=== PATIENT | female | born 1955 | race Caucasian/White ===

== ENCOUNTER 2022-05-13 15:22 | Emergency (ER) | payer MEDICARE, SELFPAY ==
[2022-05-13 15:35] VITALS: BP 142/81; PULSE 102; RESP 16; TEMP 36.9; O2SAT 98
--- NOTE | 2022-05-13 16:08 | ED.GENADULT ---
HPI - General Adult General Chief complaint: Unspecified Stated complaint: not feeling well Time Seen by Provider: 05/13/22 16:00 Source: patient, RN notes reviewed and old records reviewed Mode of arrival: ambulatory Limitations: no limitations History of Present Illness HPI narrative: 66 year old female who presents to [facility] care with complaints of not feeling well for the past 2 days. Patient reports that she has felt tired for 2 days, denies any cough or sore throat reports that she is under a lot of stress. Patient reports that her brother is under hospice care and she is caring for her mother and feels anxious and overwhelmed. Patient reports that she has appointment with her PCP in 2 weeks, reports that she didn't call his office to see if she could get in sooner.Patient requesting medication for her nerves, states has taken Xanax in past, not receptive to antidepressant. MD complaint: anxiety Onset (ago): day(s) (2) Related Data Home Medications Medication Instructions Recorded Confirmed alendronate 70 mg tablet mg PO 05/13/22 ergocalciferol (vitamin D2) 1,250 05/13/22 mcg (50,000 unit) capsule hydrochlorothiazide 12.5 mg tablet mg 05/13/22 lisinopril 40 mg tablet mg 05/13/22 Allergies Allergy/AdvReac Type Severity Reaction Status Date / Time Sulfa (Sulfonamide Allergy Intermediate Hives / Verified 12/03/18 15:56 Antibiotics) Red Face Review of Systems Review of Systems: CONSTITUTIONAL: Denies fever, chills, or sweats. EYES: Denies visual changes, redness, or discharge. ENT: Denies rhinorrhea, congestion, sore throat, or otalgia. CARDIOVASCULAR: Denies chest pain, palpitations, or edema. RESPIRATORY: Denies cough or dyspnea. GASTROINTESTINAL: Denies abdominal pain, nausea, vomiting, or diarrhea. GENITOURINARY: Denies dysuria or hematuria. SKIN: Denies rash or itching. MUSCULOSKELETAL: Denies back pain, joint pain, or myalgia.fatigue reported NEUROLOGIC: Denies headache, numbness, or weakness. PSYCHIATRIC: Reports anxiety or depression.feels overwhelmed with family stress All systems reviewed & are unremarkable except as noted in HPI and below PMFSH Past Medical History Medical History (Updated 05/15/22 @ 08:22 by Billie Mcintosh NP) Anxiety Arthritis Diverticulosis GERD (gastroesophageal reflux disease) Hypertension Surgical History Surgical History (Updated 05/15/22 @ 08:10 by Billie Mcintosh NP) History of appendectomy History of removal of skin mole Social History Social History (Updated 05/15/22 @ 08:09 by Billie Mcintosh NP) Living arrangements: with family Gender identity (if verbalized by the patient): Female Comments At time of signature, agree with nursing past medical, surgical, social and family history. There is no relevant family history pertinent to the presenting complaint Exam Narrative: GENERAL: Well-appearing, well-nourished, and in no acute distress. HEAD: Normocephalic, atraumatic. EYES: PERRLA and EOMI. ENT: Nares clear, no rhinorrhea or epistaxis. Mucous membranes moist.TM's normal with good light reflex, throat pink with no swelling NECK: Supple. no lymphadenopathy CHEST: Clear to auscultation. No respiratory distress. SAO2 98% on room air HEART: Regular rate and rhythm. No murmur heard. Normal peripheral pulses. ABDOMEN: Soft, nontender, nondistended, normal active bowel sounds. EXTREMITIES: Normal range of motion. No edema. SKIN: Warm, dry, no rash. NEURO: No focal deficits. Alert and oriented x3,anxious Course Course Emergency Course: Patient is aware of diagnosis, understands and agrees to treatment plan.? Anticipatory guidance given.? Patient agrees to follow-up as directed and is aware of reasons to seek care at the emergency department. Portions of this record may have been created with voice recognition software Level of Care: Express Care Visit Vital Signs Vital signs: Vital Signs Temperature 36.9 C 05/13/22 15:35 Pulse
== END 2022-05-13 16:36 | disposition home or self-care (01) ==
PROVIDERS: Emergency Provider Registered Nurse; PCP Internal Medicine
DX: F41.9 Anxiety disorder, unspecified (principal); M19.90 Unspecified osteoarthritis, unspecified site; K21.9 Gastro-esophageal reflux disease without esophagitis; I10 Essential (primary) hypertension
CPT/HCPCS: 99213; G0463

== ENCOUNTER 2024-08-22 13:57 | Outpatient (CLI) | payer MEDICARE, SELFPAY ==
--- OUTSIDE RECORDS SUMMARY | 2024-08-22 14:11 | XMS_ITS | Clinical Summary ---
Author Organization [facility] [address] Address [address] [place] [address] Care Team Providers Care Computer Information Systems Professor Name Role Phone Zaire Nguyen MD Primary Care Provider + Allergies Active Allergy Reactions Criticality Noted Date Comments Sulfa (Sulfonamide Antibiotics) Rash Medium Sulfasalazine Rash Medium 02/21/2015 With fever Medications ergocalciferol (VITAMIN D) 50,000 unit capsule 5 Active calcium carbonate (TUMS) 500 mg calcium (200 mg of elemental calcium) chewable tablet Take 2 tablet/chew tab (1,000 mg total) by mouth daily as needed for indigestion or heartburn Active hydroCHLOROthia zide (HYDRODIURIL) 12.5 mg tablet Take 1 tablet (12.5 mg total) by mouth daily 0 Active lisinopriL (PRINIVIL,ZESTR IL) 40 mg tablet Take 1 tablet (40 mg total) by mouth daily 2 Active cyanocobalamin, vitamin B-12, 1,000 mcg/mL kit Take 1,000 mcg by mouth daily Active acetaminophen ER (TYLENOL) 650 mg 8 hr tablet Take 1 tablet (650 mg total) by mouth every 8 (eight) hours as needed for pain Active docusate sodium (COLACE) 100 mg capsuleIndicati ons:constipatio n Take 1 capsule (100 mg total) by mouth 2 (two) times a day 4 Active cholecalciferol (VITAMIN D-3) 2000 unit capsule Take 1 capsule (2,000 Units total) by mouth daily 30 capsule [address] (NexIUM) 20 mg capsule Take 1 capsule (20 mg total) by mouth daily before breakfast 90 capsule 3 5 Active Active Problems Problem Noted Date Diagnosed Date Intermittent constipation 04/27/2024 Hx of colonic polyps 04/27/2024 Leukocytosis 10/26/2023 Glenoid fracture of shoulder , left, closed, initial encounter 10/25/2023 Displaced fracture of glenoi d cavity of scapula, right shoulder, initial encounter for closed fracture 10/25/2023 Anteroinferior dislocation of left shoulder 10/10 Osteoarthritis 10/25/2023 Depression 10/25/2023 Diverticulitis 10/25/2023 Mild obstructive sleep apnea 10/25/2023 History of basal cell carcinoma 10/25/2023 Obesity 10/25/2023 Iron deficiency anemia 08/27/2023 Assessment & Plan (09/07/2023 5:40 PM CDT): No overt bleeding. Will plan EGD for complete evaluation. Colonoscopy as per her routine schedule surveillance. Will schedule CT abdomen pelvis with contrast to complete evaluation. Follow up after the above testing. Chronic GI bleeding 08/27/2023 Sensorineural hearing loss (SNHL) of both ears 0 04/09/2021 Assessment & Plan (04/09/2021 2:31 PM RAILROAD OPERATING ENGINEER): Hearing test - [facility] Impacted cerumen of left ear 04/09/2021 Assessment & Plan (04/09/2021 2:31 PM RAILROAD OPERATING ENGINEER): Hearing test - [facility] Avoid ear cleaning techniques History of colonic polyps 10/02/2020 Overview (10/02/2020): Added automatically from request for surgery [id number] Aftercare following right knee joint replacement surgery 05/05/2018 GERD (gastroesophageal reflux disease) 8 Osteoporosis 07/14/2017 Hypertension 02/13/2016 Overview (05/15/2016): HTN - Hypertension Primary osteoarthritis of left knee 02/13/2016 Overview (05/15/2016): OA - Osteoarthritis of knee Thyroid nodule 02/13/2016 Overview (05/15/2016): Nodular thyroid Polyp of colon 02/13/2016 Overview (05/15/2016): Colon polyp Osteopenia 02/13/2016 Overview (05/15/2016): Osteopenia Resolved Problems Problem Noted Date Diagnosed Date Resolved Date Hyponatremia 10/25/2023 10/25/2023 Primary osteoarthritis of right knee 12/30/2017 05/05/2018 Overview (12/30/2017): Added automatically from request for surgery [id number] Bilateral primary osteoarthritis of knee 07/24/2016 05/10/2018 Encounters Date Type Department Care Team Description 08/03/2024 1:00 PM CDT - 08/03/2024 11:59 PM CDT Hospital Encounter [address] [address] Pelvic pain Discharge Disposition: Discharge to home or self care 07/01/2024 Telephone [facility] G[facility]ology at [address] [place] [address] Rajat Koroma MA 06/30/2024 Results Follow-Up [facility] G[facility]enterology at [address] [place] [address] Abdomen Pelvis W Contrast 06/15/2024 10:28 AM CDT - 06/15/2024 11:59 PM CDT Hospital Encounter [address] [address] Iron deficiency anemia due to chronic blood loss; Lymphadenopathy, abdominal Discharge Disposition: Discharge to home or self care 06/14/2024 Telephone [facility] [address] [place] [address] Angel Salazar from Last 3 Months Immunizations Immunization Administration Dates Next Due Influenza, Quadrivalent, Split, Intramuscular ,11/09/2014 Surgical History Surgery Date Site/Laterality Comments OTHER SURGICAL HISTORY Basal Cell carsonoma BREAST BIOPSY Breast Biopsy MOLE REMOVAL Mole Removal APPENDECTOMY 02/09/2002 - 02/08/2003 Appendectomy OTHER SURGICAL HISTORY 01-Bail Bondsman: Dr. Diana Wolff OTHER SURGICAL HISTORY 02-Route Sales Person: Dr. Gordon Pena OTHER SURGICAL HISTORY 03-Orthopedist: Dr. Jose Joe OTHER SURGICAL HISTORY 04-Breast Biopsy: Dr. Susana Dejesus JOINT REPLACEMENT 04/21/2018 right total knee POLYPECTOMY COLONOSCOPY 04/10/2015 - 05/10/2015 [facility] COLONOS[facility] 12/19/2020 SKIN BIOPSY Medical History Medical History Date Comments Gastroesophageal reflux disease GERD Arthritis 2015 Arthritis Superficial basal cell carcinoma 1990 Cancer, basal Cell Depression 1975 Depression Hypertension 2014 Hypertension Hx Other Medical 1960 Vision Problems Osteoporosis Osteoporosis Diverticulitis of intestine Dive rticulitis; Comments: TWM 08/16/2015 - Hx Other Medical 01-Bail Bondsman Hx Other Medical 02-Gastroentero logist Hx Other Medical 03-Orthopedist Hx Other Medical 04-Breast Biops y Hx of skin cancer, basal cell Thyroid nodule watched by physi leah Colon polyp Hiatal hernia Sleep apnea Family History Medical History Relation Name Comments Other Brother 2 Alive and well; Hypertension Brother 3 Hypertension; Hypertension Father Hypertension; Prostate cancer Father Cancer, pros tenorio; Stroke Father Stroke; Cervical cancer Mother Cancer, cerv ical; Hypertension Mother Hypertension; Other Mother Hip Fracture; Breast cancer Mother's Sister 70's Other Sister 2 Alive and well; Rheum arthritis Sister 3 Rheumatoid a rthritis; Other Sister 4 Juvenile Diabet es; Relation Name Status Comments Brother 1 Alive Brother 2 Brother 3 Father Mother Mother's Sister Sister 1 Alive Sister 2 Sister 3 Sister 4 Social History Tobacco Use Types Packs/Day Years Used Date Smoking Tobacco: Never Smokeless Tobacco: Never Tobacco Cessation:Counseling Given: Not Answered Alcohol Use Standard Drinks/Week Comments No 0 (1 standard drink = 0.6 oz pur e alcohol) [facility] Utilities Answer Date Recorded In the past 12 months has th e electric, gas, oil, or water company threatened to shut off services in your home? No 10/26/2023 Social Connection and Isolat ion Panel [NHANES] Answer Date Recorded In a typical week, how many times do you talk on the phone with family, friends, or neighbors? More than three times a week 10/26/2023 How often do you get togethe r with friends or relatives? More than three times a week 10/26/2023 How often do you attend chur ch or hindu services? More than 4 times per year 10/26/2023 Do you belong to any clubs o r organizations such as uatsdin groups, unions, fraternal or athletic groups, or school groups? Yes 10/26/2023 How often do you attend meet ings of the clubs or organizations you belong to? More than 4 times per year 10/26/2023 Are you , , di vorced, , never , or living with a partner? 10/26/2023 AUDIT-C Answer Date Recorded Q1: How often do you have a drink containing alcohol? Never 04/27/2024 Q2: How many drinks containi ng alcohol do you have on a typical day when you are drinking? Patient does not drink Q3: How often do you have si x or more drinks on one occasion? Never 04/27/2024 Overall Financial Resource Strain (CARDIA) Answe r Date Recorded How hard is it for you to pa y for the very basics like food, housing, medical care, and heating? Not hard at all 10/26/2023 Hunger Vital Sign Answer Date Recorded Within the past 12 months, y ou worried that your food would run out before you got the money to buy more. Never true 10/26/19 24 Within the past 12 months, t he food you bought just didn't last and you didn't have money to get more. Never true 10/26/2023 PRAPARE - Transportation Answer Date Re corded In the past 12 months, has l ack of transportation kept you from medical appointments or from getting medications? No 10/10 In the past 12 months, has l ack of transportation kept you from meetings, work, or from getting things needed for daily living? No 10/26/2023 Housing Stability Vital Sign Answer Emre e Recorded In the last 12 months, was t here a time when you were not able to pay the mortgage or rent on time? No 10/26/2023 In the past 12 months, how m any times have you moved where you were living? 0 10/26/2023 At any time in the past 12 m [facility], were you homeless or living in a nursing home (including now)? No 10/26/2023 Personal Safety Answer Date Recorded Have you ever been in or are you currently in a harmful physical or emotional relationship or is someone making you feel afraid or unsafe? Denies 03/11/2024 Comments No Sex and Gender Information Value Date Recorded Sex Assigned at Not on file Legal Sex Female 11:42 AM RAILROAD OPERATING ENGINEER Gender Identity Female 07/31/2019 10:27 PM CDT Sexual Orientation Straight 07/31/2019 10 :27 PM CDT Obstetrics History Para Term AB IAB SAB Ectopic Multiple Livin g Live Births 0 0 0 0 0 0 0 0 0 0 0 Last Filed Vital Signs Vital Sign Reading Time Taken Comments Blood Pressure 142/87 04/27/2024 10:32 AM CDT Pulse 89 04/27/2024 10:32 AM CDT Temperature 36.8 C (98.3 F) 03/11/2024 10:36 AM RAILROAD OPERATING ENGINEER Respiratory Rate 15 03/11/2024 10:3 6 AM RAILROAD OPERATING ENGINEER Oxygen Saturation 96% 04/27/2024 10: 32 AM CDT Inhaled Oxygen Concentration - - Weight 110.3 kg (243 lb 3.2 oz) 025 10:32 AM CDT Height 162.6 cm (5' 4) 04/27/2024 10:3 2 AM CDT Body Mass Index 41.75 04/27/2024 10:32 AM CDT Plan of Treatment Upcoming Encounters Date Type Department Care Team (Late st Contact Info) Description 10/21/2024 9:30 AM CDT Hospital Encounter [facility] [address] [place] [address] Charbel Moya MD [address] [place] [address] DR CAAL [address] [place] [address] 10/21/2024 9:30 AM CDT - 10/21/2024 10:00 AM CDT Surgery [facility] [address] [place] [address] Charbel Moya MD [address] [place] [address] [place] [address] COLONOSCOPY Scheduled Procedures Name Priority Associated Diagnoses Date/Ti me COLONOSCOPY Hx of colonic polyps 10/21/2024 9:30 AM CDT Health Maintenance Due Date Last Done Comments Depression Screening 1955 DTaP/Tdap/Td Vaccine (1 - Tdap) 07/02/1966 Hepatitis B Screening 07/02/1973 Pneumococcal vaccine 65+ (1 of 1 - PCV) 07/02/2005 Zoster Vaccine (1 of 2) 07/02/2005 Well Visit 65+ 07/02/2020 Covid-19 Vaccine (2 - 2023-2 5 season) 2023 06/05/2020 Osteoporosis Screening-Bone Density Scan 05/07/2024 05/07/2022, 05/07/2022, 10/18/2019, Additional history exists Breast Cancer Screening-Mammogram 08/19/2024 08/20/2023, 05/07/2022, 05/07/2022, Additional history exists Influenza Vaccine (#1) 2024 , 02/21/2019, 12/07/2015, Additional history exists Fall Risk Assessment 10/27/2024 10/28/2023 Colon Cancer Screening-Colonoscopy 12/19/2030 12/19/2020 Colon Cancer Screening-CT Colonography Discontinued 12/19/2020 Colon Cancer Screening-DNA Stool Discontinued 12/20/19 Colon Cancer Screening-FIT Discontinued 12/19/2020 Colon Cancer Screening-Sigmoidoscopy Discontinued 12/19/2020 Hepatitis C Screening Completed 08/27/2023 Medical Devices Implanted Type Area Resource Management Planner Device Identifier Shelf Expiration Date Model / Serial / Lot [employer] [id number] Attune 5mm Cruciate Retaining Rotate Platform Knee 5 Insert - [id number] Implanted:Qty: 1 on 04/21/2018 by Jose Joe MD at [facility] [employer] 12/09/2022 [id number] / / [id number] [employer] [id number] Attune Cementless Rotate Platform Knee 5 Baseplate Tibial - [id number] Implanted:Qty: 1 on 04/21/2018 by Jose Joe MD at [facility] [employer] 06/09/2027 [id number] / / [id number] [employer] [id number] Attune Cruciate Retain Cementless Knee Right 5 Narrow Component - [id number] Implanted:Qty: 1 on 04/21/2018 by Jose Joe MD at [facility] [employer] 10/09/2025 [id number] / / [id number] Procedures Procedure Name Priority Date/Time Associated Diagnosis Comments US PELVIS W ENDOVAGINAL Schedule Routine, Read Routine (OP Routine) 08/03/2024 2:[address] Pelvic pain CT ABDOMEN PELVIS W CONTRAST Schedule Routine, Read Routine (OP Routine) 06/15/2024 11:39 AM CDT Iron deficiency anemia due to chronic blood loss Lymphadenopathy, abdominal HEPATITIS PANEL, ACUTE Routine 08/27/2023 11:16 AM CDT Iron deficiency Other fatigue Chronic GI bleeding SCREENING MAMMOGRAM BILATERAL W JOSE Schedule Routine, Read Routine (OP Routine) 08/20/2023 4:50 PM CDT Screening mammogram, encounter for DEXA AXIAL SKELETON BONE DENSITY 1 OR MORE SITES Schedule Routine, Read Routine (OP Routine) 05/07/2022 2:12 PM CDT Age-related osteoporosis without current pathological fracture COLONOSCOPY 12/19/2020 9:58 AM RAILROAD OPERATING ENGINEER from Last 3 Months or Most Recently Relevant to Health Maintenance Results * US Pelvis W Endovaginal (08/03/2024 2:36 PM CDT) Anatomical Region Laterality Modality Pelvis N/A Ultrasound 08/10/2024 6:29 AM CDT Narrative 08/10/2024 6:31 AM CDT EXAM DESCRIPTION: US PELVIS W ENDOVAGINAL REASON FOR STUDY: Chronic postmenopausal pelvic pain. TECHNIQUE: Grayscale ultrasound of the pelvic contents was performed with transabdominal and transvaginal transducer. COMPARISON: CT abdomen and pelvis 06/15/2024. FINDINGS: UTERUS: The uterus is retroverted. The uterus is heterogeneous in echotexture and measures 5.5 x 3.1 x 2.8 cm. ENDOMETRIUM: The endometrium measures 1.7 cm in thickness. The endometrium is very heterogeneous. There is fluid in the endocervical canal. RIGHT OVARY: The right ovary is not seen by transvaginal imaging, only seen by transabdominal imaging measuring 1.1 x 1.3 x 1.6 cm. Preserved color flow and waveforms of the right ovary. LEFT OVARY: The left ovary could not be demonstrated for assessment. PELVIC FLUID: There is no evidence of free fluid in the pelvis. OTHER: No other significant findings. IMPRESSION: 1. Abnormal thickened heterogeneous endometrium 1.7 cm. Differential diagnosis would include endometrial hyperplasia or endometrial carcinoma. Hysteroscopy with tissue sampling is recommended. 2. Right ovary is only seen by transabdominal imaging and appears unremarkable. 3. Left ovary could not be demonstrated for assessment. THIS IS AN ELECTRONICALLY VERIFIED FINAL REPORT 08/10/2024 6:31 AM - Electronically signed by Isac Mitchell M.D. CH: ANDRES Report ID: [id number] Reading Location: [place] [id number] Procedure Note Isac Mitchell Jr., MD - 08/10/2024 EXAM DESCRIPTION: US PELVIS W ENDOVAGINAL REASON FOR STUDY: Chronic postmenopausal pelvic pain. TECHNIQUE: Grayscale ultrasound of the pelvic contents was performed with transabdominal and transvaginal transducer. COMPARISON: CT abdomen and pelvis 06/15/2024. FINDINGS: UTERUS: The uterus is retroverted. The uterus is heterogeneous in echotexture and measures 5.5 x 3.1 x 2.8 cm. ENDOMETRIUM: The endometrium measures 1.7 cm in thickness. Theendometrium is very heterogeneous. There is fluid in the endocervical canal. RIGHT OVARY: The right ovary is not seen by transvaginal imaging, onlyseen by transabdominal imaging measuring 1.1 x 1.3 x 1.6 cm. Preserved color flowand waveforms of the right ovary. LEFT OVARY: The left ovary could not be demonstrated for assessment. PELVIC FLUID: There is no evidence of free fluid in the pelvis. OTHER: No other significant findings. IMPRESSION: 1. Abnormal thickened heterogeneous endometrium 1.7 cm. Differential diagnosis would include endometrial hyperplasia or endometrial carcinoma. Hysteroscopy with tissue sampling is recommended. 2. Right ovary is only seen by transabdominal imaging and appears unremarkable. 3. Left ovary could not be demonstrated for assessment. THIS IS AN ELECTRONICALLY VERIFIED FINAL REPORT 08/10/2024 6:31 AM - Electronically signed by Isac Mitchell M.D. CH: ANDRES Report ID: [id number] Reading Location: [place] [address] us Diana Wolff MD IMG US PROCEDURES Final Result * CT Abdomen Pelvis W Contrast (06/15/2024 11:39 AM CDT) Anatomical Region Laterality Modality Body N/A Computed Tomogra phy 06/24/2024 1:39 PM CDT Narrative 06/24/2024 1:46 PM CDT EXAM DESCRIPTION: CT ABDOMEN PELVIS W CONTRAST REASON FOR STUDY: Pelvic pain, chronic, post-menopausal, Pelvic lymphadenopathy Pelvic lymphadenopathy, iron deficient, no abdominal complaints, hx of skin cancer TECHNIQUE: CT scan of the abdomen and pelvis performed with intravenous and without oral contrast using helical scanning technique with dynamic intravenous contrast injection. Reconstructed coronal and sagittal MPR images reviewed. All images stored on PACS. Automated exposure control was used as a dose optimization technique for this examination. CONTRAST TYPE/DOSE: 100mL of IOVERSOL 350 MG IODINE/ML INTRAVENOUS SYRINGE injected via intravenous COMPARISON: 09/22/2023. FINDINGS: LOWER CHEST: Lung bases are predominantly clear. No pleural effusion. LIVER: Liver size and contour normal. No focal hepatic lesion. GALLBLADDER: No gallstones or overt inflammatory change. BILE DUCTS: No biliary ductal dilation. SPLEEN: Spleen size normal. No focal splenic lesion. PANCREAS: No pancreatic mass or inflammatory change. ADRENALS: Normal KIDNEYS/URINARY TRACT: No right renal calculus. No left renal calculus. No ureteral calculus. There is no hydronephrosis or hydroureter. Urinary bladder is unremarkable. GI: No evidence of bowel obstruction. There is moderate sigmoid colon diverticulosis. No evidence of acute diverticulitis. The terminal ileum is normal. The appendix is not seen, appears to be surgically absent. Small sliding hiatal hernia. Stomach and duodenal normal. No pneumatosis. PERITONEUM: There is a fat containing umbilical hernia. There is some haziness within the abdominal mesentery, nonspecific. The few small nonenlarged lymph nodes. RETROPERITONEUM: No retroperitoneal mass or lymphadenopathy. REPRODUCTIVE: There is prominent low density along the endometrium, this measures 1.7 cm. Further assessment is recommended with a pelvic ultrasound, correlate for any clinical symptoms of postmenopausal bleeding. There is a small calcification in the left adnexa 0.7 cm. VASCULATURE: Abdominal aorta nonaneurysmal. MUSCULOSKELETAL: Bone windows demonstrate no acute or aggressive osseous abnormality. Mild disc space narrowing in the lumbar spine. OTHER: No other abnormality. IMPRESSION: No evidence of an acute abnormality of the abdomen and pelvis. Prominent low density along the endometrium 1.7 cm. Further assessment is recommended with a pelvic ultrasound, correlate for any clinical symptoms of postmenopausal bleeding. No retroperitoneal lymphadenopathy. Moderate sigmoid colon diverticulosis with no evidence of acute diverticulitis. Small sliding hiatal hernia. Fat containing umbilical hernia. THIS IS AN ELECTRONICALLY VERIFIED FINAL REPORT 06/24/2024 1:46 PM - Electronically signed by Isac Mitchell M.D. CH: ANDRES Report ID: [id number] Reading Location: [id number] Procedure Note Isac Mitchell Jr., MD - 06/24/2024 EXAM DESCRIPTION: CT ABDOMEN PELVIS W CONTRAST REASON FOR STUDY: Pelvic pain, chronic, post-menopausal, Pelvic lymphadenopathy Pelvic lymphadenopathy, iron deficient, no abdominal complaints, hx ofskin cancer TECHNIQUE: CT scan of the abdomen and pelvis performed with intravenousand without oral contrast using helical scanning technique with dynamic intravenous contrast injection. Reconstructed coronal and sagittal MPRimages reviewed. All images stored on PACS. Automated exposure control was usedas a dose optimization technique for this examination. CONTRAST TYPE/DOSE: 100mL of IOVERSOL 350 MG IODINE/ML INTRAVENOUSSYRINGE injected via intravenous COMPARISON: 09/22/2023. FINDINGS: LOWER CHEST: Lung bases are predominantly clear. No pleural effusion. LIVER: Liver size and contour normal. No focal hepatic lesion. GALLBLADDER: No gallstones or overt inflammatory change. BILE DUCTS: No biliary ductal dilation. SPLEEN: Spleen size normal. No focal splenic lesion. PANCREAS: No pancreatic mass or inflammatory change. ADRENALS: Normal KIDNEYS/URINARY TRACT: No right renal calculus. No left renal calculus.No ureteral calculus. There is no hydronephrosis or hydroureter. Urinary bladder is unremarkable. GI: No evidence of bowel obstruction. There is moderate sigmoid colon diverticulosis. No evidence of acute diverticulitis. The terminal ileumis normal. The appendix is not seen, appears to be surgically absent. Small sliding hiatal hernia. Stomach and duodenal normal. No pneumatosis. PERITONEUM: There is a fat containing umbilical hernia. There is some haziness within the abdominal mesentery, nonspecific. The few small nonenlarged lymph nodes. RETROPERITONEUM: No retroperitoneal mass or lymphadenopathy. REPRODUCTIVE: There is prominent low density along the endometrium, this measures 1.7 cm. Further assessment is recommended with a pelvicultrasound, correlate for any clinical symptoms of postmenopausal bleeding. There cash small calcification in the left adnexa 0.7 cm. VASCULATURE: Abdominal aorta nonaneurysmal. MUSCULOSKELETAL: Bone windows demonstrate no acute or aggressive osseous abnormality. Mild disc space narrowing in the lumbar spine. OTHER: No other abnormality. IMPRESSION: No evidence of an acute abnormality of the abdomen and pelvis. Prominent low density along the endometrium 1.7 cm. Further assessment is recommended with a pelvic ultrasound, correlate for any clinical symptomsof postmenopausal bleeding. No retroperitoneal lymphadenopathy. Moderate sigmoid colon diverticulosis with no evidence of acute diverticulitis. Small sliding hiatal hernia. Fat containing umbilical hernia. THIS IS AN ELECTRONICALLY VERIFIED FINAL REPORT 06/24/2024 1:46 PM - Electronically signed by Isac Mitchell M.D. CH: ANDRES Report ID: [id number] Reading Location: [place] [address] Charbel Moya MD IMG CT PROCEDURES Final Re sult * Hepatitis panel, acute Blood (08/27/2023 11:16 AM CDT) Hep A IgM Nonreactive Nonreactive Comment: Interpretive Data: If Hep A IgM Ab is reported as Equivocal, a new sample should be drawn in two weeks for testing. Current interpretive data was last revised on 19. Testing performed by: [address] [address] Hep B core IgM Nonreactive Nonreactive C SHARDAER JACKELYN (DANA) Comment: Interpretive Data If HepB Core IgM Ab is reported as Equivocal, a new sample should be drawn in two weeks for testing. Current interpretive data was last revised on 19. Testing performed by: [address] [address] Hep C Ab Nonreactive Nonreactive TRAE HAYDEN (DANA) Comment: Interpretive Data Nonreactive: Antibodies to HCV not detected. Does NOT exclude the possibility of recent exposure to HCV. Equivocal: Equivocal for HCV antibodies. Supplemental molecular testing will be automatically performed to determine infection status in accordance with current CDC screening recommendations. Reactive: Positive for HCV antibodies. This may represent current or past HCV infection. Supplemental molecular testing will be automatically performed to determine current infection status in accordance with current CDC screening recommendations. Interpretive data was last revised on 2019. Testing performed by: [address] [address] HepBsAg Nonreactive Nonreactive TRAE HAYDEN (DANA) Comment:Testing performed by : [address] [address] Blood 08/27/2023 11:1 6 AM CDT 08/27/2023 5:12 PM CDT Charbel Moya MD LAB MICROBIOLOGY - GENERAL ORDERABLES Final Result ELDAFRANSICO HAYDEN (DANA) [address] [facility] Department of [place] [address] * (ABNORMAL) Screening Mammogram Bilateral W Jose (08/20/2023 4:50 PM CDT) Anatomical Region Laterality Modality Breast Bilateral Mammography 08/20/2023 4:59 PM CDT Impressions 08/20/2023 4:59 PM CDT Left breast asymmetry requires further evaluation with additional mammographic images and possible sonography. BI-RADS: 0 - Additional imaging evaluation is necessary. The patient has been or will be contacted. Electronically signed by: Kimmie Aguilar M.D. Narrative 08/20/2023 4:59 PM CDT EXAMINATION: SCREENING MAMMOGRAM BILATERAL W JOSE ORDERING HEALTHCARE PROVIDER: SELF SCREENING MAMMOGRAM HISTORY: Routine screening mammography. COMPARISON: 05/07/2022, 09/21/2020, 07/27/2019 TECHNIQUE: CC and MLO views of the bilateral breasts were obtained with digital technique using breast tomosynthesis with C view. Computer aided detection was utilized. FINDINGS: DENSITY: The tissue of the bilateral breasts is heterogeneously dense, which may obscure small masses. BREASTS: There are stable scattered calcifications in both breasts. There is an asymmetry in the lateral left breast seen on the craniocaudal view, middle depth. There are no other suspicious masses, suspicious calcifications, or other suspicious findings in either breast. There has been no other suspicious interval change. us Self Screening Mammogram IMG MAMMO PROCEDURES Fi nal Result * Dexa Axial Skeleton Bone Density 1 or 2 Site (05/07/2022 2:12 PM CDT) Anatomical Region Laterality Modality Body N/A Other 05/07/2022 8:52 PM CDT Narrative 05/07/2022 8:54 PM CDT EXAM DESCRIPTION: DEXA AXIAL SKELETON BONE DENSITY 1 OR MORE SITES REASON FOR STUDY: 66 y/o year old F with given history of screening. 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 (S/N [id number]) CLINICAL INFORMATION: Current height: 64 inches Maximum height: 64.5 inches Weight: 234 pounds Risk factors: Postmenopausal COMPARISON: 10/18/2019, 10/09/2017, 10/09/2015, 10/05/2013, 07/14/2011 FINDINGS: AP LUMBAR SPINE L1-L4: Total BMD is 0.820 g/cm2 T-score is -2.1 Dissimilar scan types or analysis methods precludes assessment for calculating a significant change. LEFT HIP: Total BMD is 0.900 g/cm2 T-score is -0.3 Dissimilar scan types or analysis methods precludes assessment for calculating a significant change. Femoral neck BMD is 0.718 g/cm2 T-score is -1.2 FRAX: 10 year risk for a major osteoporotic fracture is 14 %, 10 year risk for a hip fracture is 0.9 % IMPRESSION: Low Bone Mass. REFERENCE: Bone mineral density: Normal (T-score above or = -1.0) Low bone mass (T-score between -1.0 and -2.5) replaces the previously used term osteopenia Osteoporosis (T-score = or below -2.5) Medical evaluation for secondary causes of low bone mineral density may be appropriate. FRAX is a World Health Organization validated fracture risk assessment tool that calculates a person's 10 year probability of a major osteoporosis related fracture and hip fracture. According to the National Osteoporosis Foundation guidelines, postmenopausal women and men age 50 or older with low bone mass and a 10 year probability of a major osteoporosis related fracture = or greater than 20% or a 10 year probability of a hip fracture = or greater than 3% should be considered for treatment. For further information, including treatment recommendations, please refer to the 2013 ISCD Official Positions (http://www.iscd.org) and the NOF's Clinician's Guide to Prevention and Treatment of Osteoporosis (http://www.nof.org/professionals/clinical-guidelines) THIS IS AN ELECTRONICALLY VERIFIED FINAL REPORT 05/07/2022 8:54 PM - Electronically signed by Gurpreet Montenegro M.D. MF: CURRY Report ID: [id number] Reading Location: [id number] [facility] Note Gurpreet Montenegro MD - 05/07/2022 EXAM DESCRIPTION: DEXA AXIAL SKELETON BONE DENSITY 1 OR MORE SITES REASON FOR STUDY: 66 y/o year old F with given history of screening. 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 (S/N [id number]) CLINICAL INFORMATION: Current height: 64 inches Maximum height: 64.5 inches Weight: 234 pounds Risk factors: Postmenopausal COMPARISON: 10/18/2019, 10/09/2017, 10/09/2015, 10/05/2013, 07/14/2011 FINDINGS: AP LUMBAR SPINE L1-L4: Total BMD is 0.820 g/cm2 T-score is -2.1 Dissimilar scan types or analysis methods precludes assessment for calculating a significant change. LEFT HIP: Total BMD is 0.900 g/cm2 T-score is -0.3 Dissimilar scan types or analysis methods precludes assessment for calculating a significant change. Femoral neck BMD is 0.718 g/cm2 T-score is -1.2 FRAX: 10 year risk for a major osteoporotic fracture is 14 %, 10 year risk for ahip fracture is 0.9 % IMPRESSION: Low Bone Mass. REFERENCE: Bone mineral density: Normal (T-score above or = -1.0) Low bone mass (T-score between -1.0 and -2.5) replaces thepreviously used term osteopenia Osteoporosis (T-score = or below -2.5) Medical evaluation for secondary causes of low bone mineral density may be appropriate. FRAX is a World Health Organization validated fracture risk assessmenttool that calculates a person's 10 year probability of a major osteoporosisrelated fracture and hip fracture. According to the National OsteoporosisFoundation guidelines, postmenopausal women and men age 50 or older with low bonemass and a 10 year probability of a major osteoporosis related fracture = or greater than 20% or a 10 year probability of a hip fracture = or greaterthan 3% should be considered for treatment. For further information, including treatment recommendations, please referto the 2013 ISCD Official Positions (http://www.iscd.org) and the NOF's Clinician's Guide to Prevention and Treatment of Osteoporosis (http://www.nof.org/professionals/clinical-guidelines) THIS IS AN ELECTRONICALLY VERIFIED FINAL REPORT 05/07/2022 8:54 PM - Electronically signed by Gurpreet Montenegro M.D. MF: CURRY Report ID: [id number] Reading Location: [place] [address] Diana Wolff MD IM DXA PROCEDURES Final Result * COLONOSCOPY (12/19/2020 9:58 AM RAILROAD OPERATING ENGINEER) Anatomical Region Laterality Modality Other Narrative Procedure Note Charbel Moya MD - 12/19/2020 9:58 AM CST [facility] Patient Name: Vonnie Christie Procedure Date: 12/19/2020 9:58 AM Date of : 1955 Admit Type: Outpatient Age: 65 Gender: Female Attending MD: Charbel Moya M.D. Room: [facility] ENDOSCOPY ROOM 1 Note Status: Finalized Patient Profile: This is a 65 year old female. History of polyps. No family history of colon cancer. Procedure: Colonoscopy Indications: High risk colon cancer surveillance: Personalhistory of colonic polyps, Last colonoscopy: April 2015 Referring MD: Zaire Nguyen M.D. Providers: Charbel Moya M.D. Impression: - Two 2 to 6 mm polyps in the ascending colon,removed with a jumbo cold forceps. Resected andretrieved. - Diverticulosis in the entire examined colon. - Internal hemorrhoids. Recommendation: - Await pathology results. - Repeat colonoscopy in 3 - 5 years for screening purposes. - Continue present medications. Medicines: Monitored Anesthesia Care Complications: No immediate complications. Estimated Blood Loss: Estimated blood loss: none. Procedure: Pre-Anesthesia Assessment: - Prior to the procedure, a History and Physicalwas performed, and patient medications and allergieswere reviewed. The patient's tolerance of previous anesthesia was also reviewed. The risks andbenefits of the procedure and the sedation options and risks were discussed with the patient. All questions were answered, and informed consent was obtained. Prior Anticoagulants: The patient has taken no previous anticoagulant or antiplatelet agents. ASA Grade Assessment: III - A patient with severe systemic disease. After reviewing the risks and benefits,the patient was deemed in satisfactory condition to undergo the procedure. The benefits, risks and alternatives of theprocedure and sedation were discussed and informed consentwas obtained. All questions were answered. Please referto the signed informed consent document in the medical record. The bowel preparation used was Miralax and bisacodyl tablets via split dose instruction. The scope was passed under direct vision. The Pediatric Colonoscope PCF-H190L [id number] was introducedthrough the anus and advanced to the the cecum, identifiedby appendiceal orifice and ileocecal valve. Thequality of the bowel preparation was good. Bowel prep was administered using a split dose. Findings: The perianal and digital rectal examinations were normal. The cecum appeared normal. Two sessile polyps were found in the ascending colon. The polyps were2 to 6 mm in size. These polyps were removed with a jumbo cold forceps. Resection and retrieval were complete. Multiple small and large-mouthed diverticula were found in the entire colon, more prominent severe changes in the sigmoid colon. There was fixation in the rectal sigmoid area.. Internal hemorrhoids were found during retroflexion. The hemorrhoids were small. Electronically signed by Charbel Moya M.D. Charbel Moya M.D. 12/19/2020 11:21:23 AM Number of Addenda: 0 Note Initiated On: 12/19/2020 9:58 AM Procedure Code(s): --- Professional --- 73778, Colonoscopy, flexible; with biopsy, single or multiple Diagnosis Code(s): --- Professional --- Z86.010, Personal history of colonic polyps K64.8, Other hemorrhoids K63.5, Polyp of colon K57.30, Diverticulosis of large intestine without perforation orabscess without bleeding CPT copyright 2019 [employer]. All rights reserved. The codes documented in this report are preliminary and upon circuit recorder reviewmay be revised to meet current compliance requirements. Recognized by the [employer] Gastrointestinal [employer]oscopy for promoting quality in endoscopy Charbel Moya MD ENDOSCOPY PROCEDURES Final Result from Last 3 Months or Most Recently Relevant to Health Maintenance Insurance MEDICARE [facility] PPO MEDICARE T SENIOR SUPPLEMENT Advance Directives For more information, please contact: [phone] * Full Code (Latest Code Status on File) Date Activated Date Inactivated Comments 03/11/2024 8:25 AM 03/11/2024 2:56 PM * Full Code Date Activated Date Inactivated Comments 03/11/2024 8:25 AM 03/11/2024 8:25 AM * Full Code Date Activated Date Inactivated Comments 10/25/2023 1:24 PM 10/28/2023 7:52 PM * Full Code Date Activated Date Inactivated Comments 10/25/2023 1:23 PM 10/25/2023 1:24 PM * Full Code Date Activated Date Inactivated Comments 12/19/2020 9:44 AM 12/19/2020 4:03 PM Healthcare Agents on File Name Relationship Healthcare Agent Relationshi p Communication Lennox Leon Friend Health Care Agent Shiraz Christie Nephew Health Care Agent [phone] (Mobile) Molly Alvarado Sister First Alternate Health Care Agent Care Teams Computer Information Systems Professor Relationship Specialty Start Date End Date Zaire Nguyen MD [address] [place] [address] PCP - General 05/09/16
--- OUTSIDE RECORDS SUMMARY | 2024-08-22 14:11 | XMS_ITS | Referral Summary ---
Author Organization [facility] Building [facility] Address [address] [place] [address] Care Team Providers Care Bar Welder Name Role Phone Zaire Nguyen MD Primary Care Provider + Encounters Date Type Department Care Team Description 08/03/2024 1:00 PM CDT - 08/03/2024 11:59 PM CDT Hospital Encounter [address] [address] Pelvic pain Discharge Disposition: Discharge to home or self care 07/01/2024 Telephone [facility] G[facility]ology at [address] [place] [phone] Rajat Koroma MA 06/30/2024 Results Follow-Up [facility] G[facility] at [address] [place] [phone] Abdomen Pelvis W Contrast 06/15/2024 10:28 AM CDT - 06/15/2024 11:59 PM CDT Hospital Encounter [address] [address] Iron deficiency anemia due to chronic blood loss; Lymphadenopathy, abdominal Discharge Disposition: Discharge to home or self care 06/14/2024 Telephone [facility] [address] [place] [address] Angel Salazar from Last 3 Months Allergies Active Allergy Reactions Criticality Noted Date [...] 04/09/2021 Assessment & Plan (04/09/2021 2:31 PM LAND ECONOMIST): Hearing test - [facility] Impacted cerumen of left ear 04/09/2021 Assessment & Plan (04/09/2021 2:31 PM LAND ECONOMIST): Hearing test - [facility] Avoid ear cleaning techniques History of colonic polyps 10/02/2020 Overview (10/02/2020): Added automatically from request for surgery [id number] Aftercare following right knee joint replacement surgery [...] (12/30/2017): Added automatically from request for surgery [id number] Bilateral primary osteoarthritis of knee 07/24/2016 05/10/2018 Immunizations Immunization Administration Dates Next Due Influenza, Quadrivalent, Split, Intramuscular ,11/09/2014 Social History Tobacco Use Types Packs/Day Years Used Date Smoking Tobacco: Never Smokeless Tobacco: Never Tobacco Cessation:Counseling Given: Not Answered Alcohol Use Standard Drinks/Week Comments No 0 (1 standard drink = 0.6 oz pur e alcohol) [facility] Utilities Answer Date Recorded In the past [...] often do you attend chur ch or faith services? More than 4 times per year 10/26/2023 Do you belong to any clubs o r organizations such as islam groups, unions, fraternal or athletic groups, or [...] any time in the past 12 m [facility], were you homeless or living in a retirement (including now)? No 10/26/2023 Personal Safety Answer Date Recorded Have you ever been in or are you currently in a harmful physical or emotional relationship or is someone making you feel afraid or unsafe? Denies 03/11/2024 Comments No Sex and Gender Information Value Date Recorded Sex Assigned at Not on file Legal Sex Female 11:42 AM LAND ECONOMIST Gender Identity Female 07/31/2019 10:27 PM CDT Sexual Orientation Straight 07/31/2019 10 :27 PM CDT Last Filed Vital Signs Vital Sign Reading Time Taken Comments Blood Pressure 142/87 04/27/2024 10:32 AM CDT Pulse 89 04/27/2024 10:32 AM CDT Temperature 36.8 C (98.3 F) 03/11/2024 10:36 AM LAND ECONOMIST Respiratory Rate 15 03/11/2024 10:3 6 AM LAND ECONOMIST Oxygen Saturation 96% 04/27/2024 10: 32 AM CDT Inhaled Oxygen Concentration - - Weight 110.3 kg (243 lb 3.2 oz) 025 10:32 AM CDT Height 162.6 cm (5' 4) 04/27/2024 10:3 2 AM CDT Body Mass Index 41.75 04/27/2024 10:32 AM CDT Plan of Treatment Upcoming Encounters Date Type Department Care Team (Late st Contact Info) Description 10/21/2024 9:30 AM CDT Hospital Encounter [facility] [address] [place] [address] Charbel Moya MD [address] [place] [address] 10/21/2024 9:30 AM CDT - 10/21/2024 10:00 AM CDT Surgery [address] [address] Charbel Moya MD [address] [place] [address] COLONOSCOPY Scheduled Procedures Name Priority Associated Diagnoses Date/Ti me COLONOSCOPY Hx of colonic polyps 10/21/2024 9:30 AM CDT Medical Devices Implanted Type Area [employer] Founder Device Identifier Shelf Expiration Date Model / Serial / Lot [employer] [id number] Attune 5mm Cruciate Retaining Rotate Platform Knee 5 Insert - [id number] Implanted:Qty: 1 on 04/21/2018 by Jose Joe MD at [facility] [employer] 12/09/2022 [id number] / / [id number] [employer] [id number] Attune Cementless Rotate Platform Knee 5 Baseplate Tibial - [id number] Implanted:Qty: 1 on 04/21/2018 by Jose Joe MD at [facility] [employer] 06/09/2027 [id number] / / [id number] [employer] [id number] Attune Cruciate Retain Cementless Knee Right 5 Narrow Component - [id number] Implanted:Qty: 1 on 04/21/2018 by Jose Joe MD at [facility] [employer] 10/09/2025 [id number] / / [id number] Procedures Procedure Name Priority Date/Time Associated Diagnosis [...] current pathological fracture COLONOSCOPY 12/19/2020 9:58 AM LAND ECONOMIST from Last 3 Months or Most Recently [...] Isac Mitchell M.D. CH: ANDRES Report ID: [id number] Reading Location: [id number] Procedure Note Isac Mitchell Jr., MD - [...] Isac Mitchell M.D. CH: ANDRES Report ID: [id number] Reading Location: [id number] us Diana Wolff MD IMG US PROCEDURES [...] Isac Mitchell M.D. CH: ANDRES Report ID: [id number] Reading Location: [id number] Procedure Note Isac Mitchell Jr., MD - [...] Electronically signed by Isac Mitchell M.D. CH: Report ID: [id number] Reading Location: [place] [address] Charbel Moya MD IM CT PROCEDURES Final Re sult * Hepatitis panel, acute Blood (08/27/2023 11:16 AM CDT) Hep A IgM Nonreactive Nonreactive Comment: Interpretive Data: If Hep A IgM Ab is reported as Equivocal, a new sample should be drawn in two weeks for testing. Current interpretive data was last revised on 19. Testing performed by: [facility], [address] [place] [address], [place]., [address] Hep B core IgM Nonreactive Nonreactive Jeffrey HAYDEN (DANA) Comment: Interpretive Data If HepB Core IgM Ab is reported as Equivocal, a new sample should be drawn in two weeks for testing. Current interpretive data was last revised on 19. Testing performed by: [facility], [address] [place] [address], [place] [address] Hep C Ab Nonreactive Nonreactive TRAE HAYDEN [...] last revised on 2019. Testing performed by: [facility], [address] [place] [address]., [address] HepBsAg Nonreactive Nonreactive TRAE HAYDEN (DANA) Comment:Testing performed by : [facility], [address] [place] [address]., [address] Blood 08/27/2023 11:1 6 AM CDT 08/27/2023 5:12 PM CDT Charbel Moya MD LAB MICROBIOLOGY - GENERAL ORDERABLES Final Result TRAE HAYDEN (DANA) [address] [facility] Department [place] [address] * (ABNORMAL) Screening Mammogram Bilateral W Jose [...] F with given history of screening. 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 MF: CURRY Report ID: [id number] Reading Location: [address] Note Gurpreet Montenegro MD - 05/07/2022 EXAM DESCRIPTION: DEXA AXIAL SKELETON BONE DENSITY 1 OR MORE SITES REASON FOR STUDY: 66 y/o year old F with given history of screening. Postmenopausal Ceo [employer] Co Founder/Model: [employer] Discovery SL (S/N [id number]) CLINICAL INFORMATION: Current height: 64 inches Maximum [...] Gurpreet Montenegro M.D. MF: CURRY Report ID: [id number] Reading Location: [place] [address] Diana Wolff MD IM DXA PROCEDURES Final Result * COLONOSCOPY (12/19/2020 9:58 AM LAND ECONOMIST) Anatomical Region Laterality Modality Other Narrative Procedure Note Charbel Moya MD - 12/19/2020 9:58 AM CST [facility] Patient Name: Vonnie Choat Procedure Date: 12/19/2020 9:58 AM Date of : 1955 Admit Type: Outpatient Age: 65 Gender: Female Attending MD: Charbel Moya M.D. Room: [facility] 1 Note Status: Finalized Patient [...] under direct vision. The Pediatric Colonoscope PCF-H190L [id number] was introducedthrough the anus and advanced to [...] 9:58 AM Procedure Code(s): --- Professional --- 95150, Colonoscopy, flexible; with biopsy, single or multiple Diagnosis Code(s): --- Professional --- Z86.010, Personal history of colonic polyps K64.8, Other hemorrhoids K63.5, Polyp of colon K57.30, Diverticulosis of large intestine without perforation orabscess without bleeding CPT copyright 2019 [employer]. All rights reserved. The codes documented in this report are preliminary and upon middle school tutor reviewmay be revised to meet current compliance requirements. Recognized by the [place] Gastrointestinal Endoscopy for promoting quality in endoscopy Charbel Moya MD ENDOSCOPY PROCEDURES Final Result from Last 3 Months or Most Recently Relevant to Health Maintenance Insurance MEDICARE T [facility] PPO MEDICARE [employer] SENIOR SUPPLEMENT Advance Directives For more information, please contact: [phone] * Full Code (Latest Code Status on [...] Agents on File Name Relationship Healthcare Agent [facility] p Communication Lennox Leon Friend Health Care Agent Shiraz Christie Nephew Health Care Agent [id number] (Mobile) Molly Alvarado Sister First Alternate Health Care Agent Care Teams Bar Welder Relationship Specialty Start Date End Date Zaire Nguyen MD [address] [place] [address] PCP - General 05/09/16
--- OUTSIDE RECORDS SUMMARY | 2024-08-22 14:11 | XMS_ITS | Encounter Summary ---
Author Organization [facility] Address [address] [place] [address] Care Team Providers Care Yard Pipe Grader Name Role Phone Zaire Nguyen MD Primary Care Provider + Reason for Visit * Reason Onset Date Comments Scheduling Appointments 10/14/2019 reminded about dexa appt Encounter Details Date Type Department Care Team (Late Contact Info) Description 10/14/2019 Telephone [facility] [address] [place] [address] Surekha Vizcaino, Scheduling Appointments (reminded about dexa appt) Social History Tobacco Use Types Packs/Day Years Used Date Smoking Tobacco: Never Smokeless Tobacco: Never Alcohol Use Standard Drinks/Week Comments No 0 (1 standard drink = 0.6 oz pur e alcohol) Comments No Sex and Gender Information Value Date Recorded Sex Assigned at Not on file Legal Sex Female 11:42 AM EDGER FEEDER Gender Identity Female 07/31/2019 10:27 PM CDT Sexual Orientation Straight 07/31/2019 10 :27 PM CDT documented as of this encounter Plan of Treatment Upcoming Encounters Date Type Department Care Team (Late Contact Info) Description 10/21/2024 9:30 AM CDT Hospital Encounter [facility] 1 [place] [address] Charbel Moya MD [address] [place] [address] 10/21/2024 9:30 AM CDT - 10/21/2024 10:00 AM CDT Surgery [address] [address] Charbel Moya MD [address] [place] [address] COLONOSCOPY Scheduled Procedures Name Priority Associated Diagnoses Date/Ti me COLONOSCOPY Hx of colonic polyps 10/21/2024 9:30 AM CDT documented as of this encounter Visit Diagnoses Not on filedocumented in this encounter Care Teams Yard Pipe Grader Relationship Specialty Start Date End Date Zaire Nguyen MD [address] [place] [address] PCP - General 05/09/16 documented as of this encounter
--- OUTSIDE RECORDS SUMMARY | 2024-08-22 14:11 | XMS_ITS | Clinical Summary ---
Author Organization [facility] Address [address] [place] [address] Phone Care Team Providers Care Technical Project Coordinator Name Role Phone Shawna Rowe MD Unavailable Zaire Nguyen MD Primary Care Provider [phone] Allergies Active Allergy Reactions Criticality Noted Date Comments Sulfa Antibiotics Rash 02/21/2015 With fever Medications ergocalciferol (VITAMIN D) 81054 UNIT Capsule 4 5 Active Calcium Carbonate Antacid (TUMS PO) Take 1 Tab by mouth as needed. Active Acetaminophen (TYLENOL ARTHRITIS PAIN PO) Take 650 mg by mouth daily. Active saccharomyces boulardii (FLORASTOR) 250 MG Capsule Take 250 mg by mouth daily. Active psyllium (KONSYL) 100 % Pack Take by mouth. Activ e alendronate (FOSAMAX) 70 MG Tablet Take 70 mg by mouth every 7 days. Active esomeprazole (NexIUM) 40 MG CAPSULE DELAYED RELEASEIndicatio ns:Gastroesophag eal reflux disease, unspecified whether esophagitis present Take 1 Cap by mouth daily. 30 Cap 6 0 Active Additional Information Patient taking differently: 20 mgOral DAILY, Reported on 06/28/2024 lisinopril (PRINIVIL, ZESTRIL) 40 MG Tablet Take 40 mg by mouth daily. 1 Active hydroCHLOROthiaz jon 12.5 MG Tablet 1 Active ALPRAZolam (XANAX) 0.25 MG Tablet TAKE 1 TABLET BY MOUTH TWICE DAILY NEEDED FOR ANXIETY 3 Active Cholecalciferol (VITAMIN D-3 PO) Take by mouth. Active Docusate Sodium (COLACE PO) Take by mouth. Act elena Ibuprofen (ADVIL PO) Take by mouth. Activ e Active Problems Problem Noted Date Diagnosed Date Iron deficiency anemia 05/22/2023 Diverticulosis 12/19/2019 Class 2 severe obesity due t o excess calories with serious comorbidity and body mass index (BMI) of 36.0 to 36.9 in adult 10/19/2019 Multinodular goiter 10/19/2019 Osteoporosis Hypertension GERD (gastroesophageal reflux disease) Encounters Date Type Department Care Team Description 06/30/2024 Telephone [facility] Endocrinology [facility] [address] [place] [address] Shawna Rowe MD Results 06/28/2024 2:45 PM CDT [facility] [place] [address] Shawna Rowe MD Multinodular goiter (Primary Dx) Discharge Disposition: Discharged to home or Selfcare 06/28/2024 Travel from Last 3 Months Immunizations Immunization Administration Dates Next Due Covid-19, Mrna, Lnp-s, Pf, 3 0 Mcg/0.3 Ml Dose (Myze) 06/05/2020 Influenza Vaccine greater than 3 yrs 12/08/2014 12/09/2015 Influenza Vaccine, MDCK,quadrivalent, pres free 02/21/2019 Influenza Vaccine, Quadrivalent, PF 11/30/2019,1 Influenza, Injectable, Quadrivalent 12/07/2015,1 Influenza, Quadrivalent, Adjuvanted 01/20/2023 Influenza, Seasonal, Injectable, Undefined 12/08 Family History Medical History Relation Name Comments Hypertension Brother High Cholesterol Father Hypertension Father Prostate Cancer Father Stroke Father Breast Cancer Maternal Aunt Cancer Maternal Uncle esophageal Cervical Cancer Mother High Cholesterol Mother Hypertension Mother Diabetes Sister 1 Rheumatoid Arthritis Sister 1 Rheumatoid Arthritis Sister 2 Relation Name Status Comments Brother Father Alive Maternal Aunt Maternal Uncle Mother Alive Sister 1 Sister 2 Social History Tobacco Use Types Packs/Day Years Used Date Smoking Tobacco: Never Smokeless Tobacco: Never Tobacco Cessation:Counseling Given: No Alcohol Use Standard Drinks/Week Comments No 0 (1 standard drink = 0.6 oz pur e alcohol) Sexually Active Control Partners Comments Not Currently Comments No Sex and Gender Information Value Date Recorded Sex Assigned at Not on file Legal Sex Female 8:01 PM CDT Gender Identity Not on file Sexual Orientation Not on file Occupation Industry Job Start Date Job End Date 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 Not on file Not on file Not on cedrick e Last Filed Vital Signs Vital Sign Reading Time Taken Comments Blood Pressure 126/60 06/28/2024 2:51 PM CDT Pulse 89 06/28/2024 2:51 PM CDT Temperature 36.4 C (97.5 F) 06/28/2024 2:51 PM CDT Respiratory Rate 22 06/28/2024 2:51 PM CDT Oxygen Saturation 97% 06/28/2024 2:51 PM CDT Inhaled Oxygen Concentration - - Weight 111 kg (244 lb 12.8 oz) 06/28/2024 2:51 P M CDT Height 162.6 cm (5' 4) 06/28/2024 2:51 PM CDT Body Mass Index 42.02 06/28/2024 2:51 PM CDT Plan of Treatment Upcoming Encounters Date Type Department Care Team (Late st Contact Info) Description 06/29/2025 1:00 PM CDT Office Visit [facility] [place] [address] [place] [address] Shawna Rowe MD [address] [address] Health Maintenance Due Date Last Done Comments Hepatitis C Virus (HCV) Screening 1955 TdaP Immunization 1955 Cologuard 07/02/2000 Immunochemical Fecal Occult Blood 07/02/2000 Pneumococcal Immunization (50+ years) (1 of 1 - PCV) 07/02/2005 Zoster Immunization (1 of 2) 07/02/2005 Respiratory Syncytial Virus (RSV) Immunization (Adult) (1 - Risk 60-74 years 1-dose series) 2015 SARS-COV-2 Immunization ( season) 2023 01/27/2021, 06/05/2020, 05/15/2020 DEXA Bone Density 05/07/2024 05/07/2022, , 10/09/2017, Additional history exists Mammogram 08/19/2024 08/20/2023, 04/10, 09/21/2020, Additional history exists Influenza Immunization (#1) 10/10/202411/09, 01/20/2023, 11/30/2019, Additional history exists Colonoscopy 12/19/2030 12/19/2020, 05/08/2015 Colorectal Cancer Screening 12/19/2030 Hepatitis B Immunization Aged Out No longer eligible based on patient's age to complete this topic Human Papillomavirus (HPV) Immunization Aged Out No longer eligible based on patient's age to complete this topic Meningococcal Immunization (ACWY) Aged Out No longer eligible based on patient's age to complete this topic Rotavirus Immunization Aged Out No lo nger eligible based on patient's age to complete this topic Insurance MEDICARE [facility] Care Teams Technical Project Coordinator Relationship Specialty Start Date End Date Zaire Nguyen MD [address] [place] [address] PCP - General Internal Medicine 05/08/23 Shawna Rowe MD [address] [address] Consulting Physician Endocrinology 11/15/21
--- OUTSIDE RECORDS SUMMARY | 2024-08-22 14:11 | XMS_ITS | Clinical Summary ---
Author Organization [facility] Address [address] [place] [address] Phone Care Team Providers Care 3Rd Grade Teacher Name Role Phone Joseph Arenas MD Primary Care Provider Unavail able Allergies Active Allergy Reactions Criticality Noted Date Comments Sulfa (Sulfonamide Antibiotics) Rash Low 09/2015 Sulfacetamide Sodium Rash Low 10/25/2015 Medications esomeprazole (NexIUM) 40 mg Capsule, Delayed Release(E.C.) 10/06/2015 Activ e lisinopril-hydroCH LOROthiazide (ZESTORETIC) 10-12.5 mg tablet 08/18/2015 A ctive ergocalciferol (VITAMIN D2) 50,000 unit capsule 10/07/2015 Active Active Problems Patient Care Coordination No te Formatting of this note migh t be different from the original. Primary Care: Joseph Arenas MD Referring Provider: Diana Wolff MD [address] [place] [address] Other: Dr Susana Dejesus Problem Noted Date Diagnosed Date Breast lump 10/18/2015 Depression H/O seasonal allergies Osteopenia Family History Medical History Relation Name Comments Prostate Cancer Father Stroke Father Breast Cancer Maternal Aunt Diabetes Maternal Aunt Cancer Maternal Uncle esophageal ca Cancer Mother cervical ca Diabetes Sister Ovarian Cancer Neg Hx Uterine Cancer Neg Hx Relation Name Status Comments Father Maternal Aunt Maternal Uncle Mother Sister Social History Tobacco Use Types Packs/Day Years Used Date Smoking Tobacco: Never Smokeless Tobacco: Never Tobacco Cessation:Counseling Given: No Alcohol Use Standard Drinks/Week Comments No 0 (1 standard drink = 0.6 oz pur e alcohol) Comments No Sex and Gender Information Value Date Recorded Sex Assigned at Not on file Legal Sex Female 3:39 PM CDT Gender Identity Not on file Sexual Orientation Not on file Last Filed Vital Signs Vital Sign Reading Time Taken Comments Blood Pressure 126/84 10/25/2015 10:26 AM CDT Pulse 101 10/25/2015 10:26 AM CDT Temperature - - Respiratory Rate - - Oxygen Saturation - - Inhaled Oxygen Concentration - - Weight 96.6 kg (213 lb) 10/25/2015 10:26 AM CDT Height 162.6 cm (5' 4) 10/25/2015 10:26 AM CDT Body Mass Index 36.56 10/25/2015 10:26 AM CDT Plan of Treatment Health Maintenance Due Date Last Done Comments DTAP/TDAP/TD VACCINES (1 - Tdap) 07/02/1974 COLORECTAL SCREENING 07/02/2000 Colorectal Cancer Screening 07/02/2000 FIT-DNA Q 3 years 07/02/2000 FIT/FOBT Q 1 year 07/02/2000 Flex Sig/CT Colonography Q 5 years 07/02/2000 PNEUMOCOCCAL VACCINE 50+ YEA RS (1 of 1 - PCV) 07/02/2005 ZOSTER VACCINE (1 of 2) 07/02/2005 BREAST CANCER SCREENING 10/08/2016 10/09/19 16, 10/05/2013, 01/20/2012 OSTEOPOROSIS SCREENING 07/02/2020 INFLUENZA VACCINE (#1) 2024 RSV VACCINE (60+ or ) (1 - 1-dose 75+ series) 07/02/2030 Procedures Procedure Name Priority Date/Time Associated Diagnosis Comments MAMMO 3D KECIA SCREEN BILAT W OR WO CAD Routine 10/09/2015 from Last 3 Months or Most Recently Relevant to Health Maintenance Results * (ABNORMAL) MAMMO DIG SCREEN BILAT W 3D KECIA (10/09/2015) Anatomical Region Laterality Modality Breast Bilateral Other us Diana Wolff MD MAMMO ORDERABLES Edited R esult - Final from Last 3 Months or Most Recently Relevant to Health Maintenance Care Teams 3Rd Grade Teacher Relationship Specialty Start Date End Date Joseph Arenas MD PCP - General Family Practice 10/23/15
[2024-08-22 18:35] LABS: Anion Gap 7 mmol/L (4-12); Blood Urea Nitrogen 12 mg/dL (7-17); Calcium 10.2 mg/dL (8.4-10.2); Carbon Dioxide 29 mmol/L (22-30); Chloride 99 mmol/L (98-107); Estimated Glomerular Filt Rate > 60; Glucose 121 mg/dL (65-110); Potassium 4.6 mmol/L (3.4-5.0); Sodium 135 mmol/L (137-145)
== END 2024-08-22 13:58 | disposition home or self-care (01) ==
PROVIDERS: Visit Provider Anesthesiology
DX: Z51.81 Encounter for therapeutic drug level monitoring (principal); Z79.899 Other long term (current) drug therapy
CPT/HCPCS: 36415; 80048

== ENCOUNTER 2024-08-29 00:49 | Day surgery (SDC) | payer MEDICARE, SELFPAY ==
[2024-08-18 15:48] VITALS: BMI 40.8
--- NOTE | 2024-08-18 16:17 | PC.NURSE ---
Report to the Outpatient Waiting Room, entrance under the green pavilion located off [facility], at time ___10:15AM____ on date ___08/29/24____. Planned Procedure Time: __12:15PM .? Time changes happen often and if your time is changed the preop area will call you the afternoon before. - You and your visitor will be asked to self-screen and do not enter if you have any COVID symptoms. Please call surgeon if you need to reschedule. - A mask is optional within the hospital at this time. Patients may have clear liquids (water, carbonated beverages, clear teas, apple juice) until 3 hours prior to surgery (9:15AM) with a maximum of 20 ounces. - No food from midnight until time of surgery and no smoking, or chewing tobacco (or any form of nicotine). No chewing gum, candy or mints. Take only the following medications with a SIP of water on the morning of surgery: ____NONE DO NOT STOP ANY OF YOUR OTHER PRESCRIPTION MEDICATIONS PRIOR TO SURGERY EXCEPT THE FOLLOWING Hold all vitamins and supplements for 3 days per anesthesiologist. LAST DOSE 08/25/24. Please no make-up, nail scottish, hairspray, perfume, deodorant, or body powder the day of surgery.? No jewelry (including any body piercings) or valuables the day of surgery, leave them at home.? Please take a shower or bath the night before, or the morning of, surgery with an antibacterial soap.? Wear comfortable, loose fitting clothing.? - Jewelry must be removed prior to entering the operating room.? Rings and piercings that are not removed may be cut off. - The hospital will not accept responsibility for valuables.? - Please leave all valuables, including medications, at home the day of surgery. If you are going home after surgery, a licensed marine engine driver must drive you home.? - NO public transportation without another adult if you receive anesthesia. - We recommend that an adult stay with you for 24 hours following discharge. - We also recommend that you do not drive, make important decision, drink alcoholic beverages, or take any drugs that were not prescribed by your health care provider for at least 24 hours after your discharge time. Follow any additional instructions given to you from your surgeon. Telephone instructions given to ____PATIENT and asked if any additional questions and then verbalized understanding. Patient advised to call surgeon office or pre surgery nurse liaison [phone] if any additional questions.
--- OUTSIDE RECORDS SUMMARY | 2024-08-29 00:51 | XMS_ITS | Clinical Summary ---
Author Organization [facility] Address [address] [place] [address] Phone Care Team Providers Care Tunnel Man Name Role Phone Shawna Rowe MD Unavailable Zaire Nguyen MD Primary Care Provider [phone] Allergies Active Allergy Reactions Criticality Noted Date Comments Sulfa Antibiotics Rash 02/21/2015 With fever Medications ergocalciferol (VITAMIN D) 72274 UNIT Capsule 4 5 Active Calcium Carbonate [...] Type Department Care Team Description 06/30/2024 Telephone [facility] Endocrinology [facility] [address] [place] [address] Shawna Rowe MD Results 06/28/2024 2:45 PM CDT [facility] [place] [address] Shawna Roew MD Multinodular goiter (Primary Dx) Discharge Disposition: Discharged to home or Selfcare 06/28/2024 Travel from Last 3 Months Immunizations Immunization Administration Dates Next Due Covid-19, Mrna, Lnp-s, Pf, 3 0 Mcg/0.3 Ml Dose (H-care) 06/05/2020 Influenza Vaccine greater than 3 yrs [...] Job Start Date Job End Date 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
--- OUTSIDE RECORDS SUMMARY | 2024-08-29 00:51 | XMS_ITS | Encounter Summary ---
Author Organization [facility] Address [address] [place] [address] Care Team Providers Care Graduate Recruiter Name Role Phone Zaire Nguyen MD Primary Care Provider + Reason for Visit * Reason Onset Date Comments Scheduling Appointments 10/14/2019 reminded about dexa appt Encounter Details Date Type Department Care Team (Late Contact Info) Description 10/14/2019 Telephone [facility] [address] [place] [address] Surekha Vizcaino, Scheduling Appointments (reminded about dexa appt) Social History Tobacco Use Types Packs/Day Years Used Date Smoking Tobacco: Never Smokeless Tobacco: Never Alcohol Use Standard Drinks/Week Comments No 0 (1 standard drink = 0.6 oz pur e alcohol) Comments No Sex and Gender Information Value Date Recorded Sex Assigned at Not on file Legal Sex Female 11:42 AM CUSTOMER SERVICE CLERK Gender Identity Female 07/31/2019 10:27 PM CDT Sexual Orientation Straight 07/31/2019 10 :27 PM CDT documented as of this encounter Plan of Treatment Upcoming Encounters Date Type Department Care Team (Late Contact Info) Description 10/21/2024 9:30 AM CDT Hospital Encounter [facility] [address] [place] [address] Charbel Moya MD [address] [facility] [address] [place] [address] 10/21/2024 9:30 AM CDT - 10/21/2024 10:00 AM CDT Surgery [address] [address] Charbel Moya MD [address] [facility] [address] [place] [address] COLONOSCOPY Scheduled Procedures Name Priority Associated Diagnoses Date/Ti me COLONOSCOPY Hx of colonic polyps 10/21/2024 9:30 AM CDT documented as of this encounter Visit Diagnoses Not on filedocumented in this encounter Care Teams Graduate Recruiter Relationship Specialty Start Date End Date Zaire Nguyen MD [address] [facility] [address] [place] [address] PCP - General 05/09/16 documented as of this encounter
--- OUTSIDE RECORDS SUMMARY | 2024-08-29 00:51 | XMS_ITS | Clinical Summary ---
Author Organization [facility] Building [facility] Address [address] [place] [address] Care Team Providers Care Workforce Management Analyst Name Role Phone Zaire Nguyen MD Primary [...] 04/09/2021 Assessment & Plan (04/09/2021 2:31 PM ASSISTANT PROFESSOR OF MUSIC): Hearing test - [facility] Impacted cerumen of left ear 04/09/2021 Assessment & Plan (04/09/2021 2:31 PM ASSISTANT PROFESSOR OF MUSIC): Hearing test - [facility] Avoid ear cleaning techniques History of colonic polyps 10/02/2020 Overview (10/02/2020): Added automatically from request for surgery [id number] Aftercare following right knee joint replacement surgery [...] (12/30/2017): Added automatically from request for surgery [id number] Bilateral primary osteoarthritis of knee 07/24/2016 05/10/2018 Encounters Date Type Department Care Team Description 08/03/2024 1:00 PM CDT - 08/03/2024 11:59 PM CDT Hospital Encounter [address] [address] Pelvic pain Discharge Disposition: Discharge to home or self care 07/01/2024 Telephone [facility] Gastroenterology at [address] [place] [address] Rajat Koroma MA 06/30/2024 Results Follow-Up [facility] Gastroenterology at [address] [place] [address] Abdomen Pelvis W Contrast 06/15/2024 10:28 AM CDT - 06/15/2024 11:59 PM CDT Hospital Encounter [address] [address] Iron deficiency anemia due to chronic blood loss; Lymphadenopathy, abdominal Discharge Disposition: Discharge to home or self care 06/14/2024 Telephone [facility] [address] [place] [address] Angel Salazar from Last 3 Months Immunizations Immunization Administration Dates Next Due Influenza, Quadrivalent, Split, Intramuscular ,11/09/2014 Surgical History Surgery Date Site/Laterality Comments OTHER SURGICAL HISTORY Basal Cell carsonoma BREAST BIOPSY Breast Biopsy MOLE REMOVAL Mole Removal APPENDECTOMY 02/09/2002 - 02/08/2003 Appendectomy OTHER SURGICAL HISTORY 01-Nurse Manager: Dr. Diana Wolff OTHER SURGICAL HISTORY 02-Assistant Professor Of Communication: Dr. Gordon Pena OTHER SURGICAL HISTORY 03-Orthopedist: [...] Comments: TWM 08/16/2015 - Hx Other Medical 01-Nurse Manager Hx Other Medical 02-Gastroentero logist Hx Other [...] drink = 0.6 oz pur e alcohol) [facility] Utilities Answer Date Recorded In the past [...] often do you attend chur ch or tenriism services? More than 4 times per year 10/26/2023 Do you belong to any clubs o r organizations such as mormonism groups, unions, fraternal or athletic groups, or [...] any time in the past 12 m [facility], were you homeless or living in a [place] health care facility (including now)? No 10/26/2023 Personal Safety Answer Date Recorded Have you ever been in or are you currently in a harmful physical or emotional relationship or is someone making you feel afraid or unsafe? Denies 03/11/2024 Comments No Sex and Gender Information Value Date Recorded Sex Assigned at Not on file Legal Sex Female 11:42 AM ASSISTANT PROFESSOR OF MUSIC Gender Identity Female 07/31/2019 10:27 PM CDT [...] 36.8 C (98.3 F) 03/11/2024 10:36 AM ASSISTANT PROFESSOR OF MUSIC Respiratory Rate 15 03/11/2024 10:3 6 AM ASSISTANT PROFESSOR OF MUSIC Oxygen Saturation 96% 04/27/2024 10: 32 AM CDT Inhaled Oxygen Concentration - - Weight 110.3 kg (243 lb 3.2 oz) 025 10:32 AM CDT Height 162.6 cm (5' 4) 04/27/2024 10:3 2 AM CDT Body Mass Index 41.75 04/27/2024 10:32 AM CDT Plan of Treatment Upcoming Encounters Date Type Department Care Team (Late st Contact Info) Description 10/21/2024 9:30 AM CDT Hospital Encounter [facility] [address] [place] [address] Charbel Moya MD [address] [place] [address] [address] [place] [address] 10/21/2024 9:30 AM CDT - 10/21/2024 10:00 AM CDT Surgery [facility] [address] [place] [address] Charbel Moya MD [address] [place] [address] [place] [address] COLONOSCOPY Scheduled Procedures Name Priority Associated Diagnoses [...] Completed 08/27/2023 Medical Devices Implanted Type Area Customer Care Consultant Device Identifier Shelf Expiration Date Model / Serial / Lot [employer] [id number] Attune 5mm Cruciate Retaining Rotate Platform Knee 5 Insert - [id number] Implanted:Qty: 1 on 04/21/2018 by Jose Joe MD at [facility] [employer] 12/09/2022 [id number] / / [id number] [employer] [id number] Attune Cementless Rotate Platform Knee 5 Baseplate Tibial - [id number] Implanted:Qty: 1 on 04/21/2018 by Jose Joe MD at [facility] [employer] 06/09/2027 [id number] / / [id number] [employer] [id number] Attune Cruciate Retain Cementless Knee Right 5 Narrow Component - [id number] Implanted:Qty: 1 on 04/21/2018 by Jose Joe MD at [facility] [employer] 10/09/2025 [id number] / / [id number] Procedures Procedure Name Priority Date/Time Associated Diagnosis [...] current pathological fracture COLONOSCOPY 12/19/2020 9:58 AM ASSISTANT PROFESSOR OF MUSIC from Last 3 Months or Most Recently [...] Isac Mitchell M.D. CH: ANDRES Report ID: [id number] Reading Location: [place] [address] Procedure Note Isac Mitchell Jr., MD - [...] Isac Mitchell M.D. CH: ANDRES Report ID: [id number] Reading Location: [place] [address] us Diana Wolff MD IMG US PROCEDURES [...] Isac Mitchell M.D. CH: ANDRES Report ID: [id number] Reading Location: [id number] Procedure Note Isac Mitchell Jr., MD - [...] Isac Mitchell M.D. CH: ANDRES Report ID: [id number] Reading Location: [place] [address] Charbel Moya MD IMG CT PROCEDURES Final Re sult * Hepatitis panel, acute Blood (08/27/2023 11:16 AM CDT) Hep A IgM Nonreactive Nonreactive Comment: Interpretive Data: If Hep A IgM Ab is reported as Equivocal, a new sample should be drawn in two weeks for testing. Current interpretive data was last revised on 19. Testing performed by: [address] [address] Hep B core IgM Nonreactive Nonreactive C SHARDAER JACKELYN (DANA) Comment: Interpretive Data If HepB Core IgM Ab is reported as Equivocal, a new sample should be drawn in two weeks for testing. Current interpretive data was last revised on 19. Testing performed by: [address] [address] Hep C Ab Nonreactive Nonreactive TRAE HAYDEN [...] last revised on 2019. Testing performed by: [address] [address] HepBsAg Nonreactive Nonreactive TRAE HAYDEN (DANA) Comment:Testing performed by : [address] [address] Blood 08/27/2023 11:1 6 AM CDT 08/27/2023 5:12 PM CDT Charbel Moya MD LAB MICROBIOLOGY - GENERAL ORDERABLES Final Result ELDAFRANSICO HAYDEN (DANA) 1 [facility] Department [place] [address] * (ABNORMAL) Screening Mammogram Bilateral W Jose [...] F with given history of screening. Postmenopausal Customer Care Consultant/Model: [employer] (S/N [id number]) CLINICAL INFORMATION: Current height: 64 inches Maximum [...] Gurpreet Montenegro M.D. MF: CURRY Report ID: [id number] Reading Location: [id number] [facility] Note Gurpreet Montenegro MD - 05/07/2022 EXAM DESCRIPTION: DEXA AXIAL SKELETON BONE DENSITY 1 OR MORE SITES REASON FOR STUDY: 66 y/o year old F with given history of screening. Postmenopausal Customer Care Consultant/Model: [employer] (S/N [id number]) CLINICAL INFORMATION: Current height: 64 inches Maximum [...] Gurpreet Montenegro M.D. MF: CURRY Report ID: [id number] Reading Location: [place] [address] Diana Wolff MD IM DXA PROCEDURES Final Result * COLONOSCOPY (12/19/2020 9:58 AM ASSISTANT PROFESSOR OF MUSIC) Anatomical Region Laterality Modality Other Narrative Procedure Note Charbel Moya MD - 12/19/2020 9:58 AM CST [facility] Patient Name: Vonnie Christie Procedure Date: 12/19/2020 9:58 AM Date of : 1955 Admit Type: Outpatient Age: 65 Gender: Female Attending MD: Charbel Moya M.D. Room[facility] 1 Note Status: Finalized [...] under direct vision. The Pediatric Colonoscope [id number] was introducedthrough the anus and advanced to [...] 9:58 AM Procedure Code(s): --- Professional --- 47246, Colonoscopy, flexible; with biopsy, single or multiple Diagnosis Code(s): --- Professional --- Z86.010, Personal history of colonic polyps K64.8, Other hemorrhoids K63.5, Polyp of colon K57.30, Diverticulosis of large intestine without perforation orabscess without bleeding CPT copyright 2019 [employer]. All rights reserved. The codes documented in this report are preliminary and upon industrial real estate agent reviewmay be revised to meet current compliance requirements. Recognized by the [employer] for promoting quality in endoscopy Charbel Moya MD ENDOSCOPY PROCEDURES Final Result from Last 3 Months or Most Recently Relevant to Health Maintenance Insurance [facility] PPO MEDICARE T SENIOR SUPPLEMENT Advance Directives For more information, please contact: [phone] * Full Code (Latest Code Status on [...] Agent Shiraz Christie Nephew Health Care Agent [phone] (Mobile) Molly Alvarado Sister First Alternate Health Care Agent Care Teams Workforce Management Analyst Relationship Specialty Start Date End Date Zaire Nguyen MD [address] [place] [address] PCP - General 05/09/16
--- OUTSIDE RECORDS SUMMARY | 2024-08-29 00:51 | XMS_ITS | Clinical Summary ---
Author Organization [facility] Address [address] [place] [address] Phone Care Team Providers Care Supervisor Intermediates Name Role Phone Joseph Arenas MD Primary [...] Diana Wolff MD [address] [place] [address] Other: Dr Susana Dejesus Problem Noted Date [...] Recently Relevant to Health Maintenance Care Teams Supervisor Intermediates Relationship Specialty Start Date End Date Joseph Arenas MD PCP - General Family Practice 10/23/15
--- OUTSIDE RECORDS SUMMARY | 2024-08-29 00:51 | XMS_ITS | Referral Summary ---
Author Organization [facility] Medical Office Building B Address [address] [place] [address] Care Team Providers Care Neonatal Surgeon Name Role Phone Zaire Nguyen MD Primary Care Provider + Encounters Date Type Department Care Team Description 08/03/2024 1:00 PM CDT - 08/03/2024 11:59 PM CDT Hospital Encounter [address] [address] Pelvic pain Discharge Disposition: Discharge to home or self care 07/01/2024 Telephone [facility] G[facility]enterology at [address] [place] [phone] Rajat Koroma MA 06/30/2024 Results Follow-Up [facility] G[facility]enterology at [address] [place] [phone] Abdomen Pelvis W Contrast 06/15/2024 10:28 AM CDT - 06/15/2024 11:59 PM CDT Hospital Encounter [address] [address] Iron deficiency anemia due to chronic blood loss; Lymphadenopathy, abdominal Discharge Disposition: Discharge to home or self care 06/14/2024 Telephone [facility] [address] [place] [address] Angel Salazar from Last 3 Months Allergies [...] 04/09/2021 Assessment & Plan (04/09/2021 2:31 PM RELOCATION ASSOCIATE): Hearing test - [facility] Impacted cerumen of left ear 04/09/2021 Assessment & Plan (04/09/2021 2:31 PM RELOCATION ASSOCIATE): Hearing test - [facility] Avoid ear cleaning techniques History of colonic polyps 10/02/2020 Overview (10/02/2020): Added automatically from request for surgery [id number] Aftercare following right knee joint replacement surgery [...] (12/30/2017): Added automatically from request for surgery [id number] Bilateral primary osteoarthritis of knee 07/24/2016 05/10/2018 Immunizations Immunization Administration Dates Next Due Influenza, Quadrivalent, Split, Intramuscular ,11/09/2014 Social History Tobacco Use Types Packs/Day Years Used Date Smoking Tobacco: Never Smokeless Tobacco: Never Tobacco Cessation:Counseling Given: Not Answered Alcohol Use Standard Drinks/Week Comments No 0 (1 standard drink = 0.6 oz pur e alcohol) [facility] Utilities Answer Date Recorded In the [...] often do you attend chur ch or gnosticism services? More than 4 times per year 10/26/2023 Do you belong to any clubs o r organizations such as gnosticism groups, unions, fraternal or athletic groups, or [...] time in the past [address] [facility], were you homeless or living in a assisted (including now)? No 10/26/2023 Personal Safety Answer Date Recorded Have you ever been in or are you currently in a harmful physical or emotional relationship or is someone making you feel afraid or unsafe? Denies 03/11/2024 Comments No Sex and Gender Information Value Date Recorded Sex Assigned at Not on file Legal Sex Female 11:42 AM RELOCATION ASSOCIATE Gender Identity Female 07/31/2019 10:27 PM CDT Sexual Orientation Straight 07/31/2019 10 :27 PM CDT Last Filed Vital Signs Vital Sign Reading Time Taken Comments Blood Pressure 142/87 04/27/2024 10:32 AM CDT Pulse 89 04/27/2024 10:32 AM CDT Temperature 36.8 C (98.3 F) 03/11/2024 10:36 AM RELOCATION ASSOCIATE Respiratory Rate 15 03/11/2024 10:3 6 AM RELOCATION ASSOCIATE Oxygen Saturation 96% 04/27/2024 10: 32 AM CDT Inhaled Oxygen Concentration - - Weight 110.3 kg (243 lb 3.2 oz) 025 10:32 AM CDT Height 162.6 cm (5' 4) 04/27/2024 10:3 2 AM CDT Body Mass Index 41.75 04/27/2024 10:32 AM CDT Plan of Treatment Upcoming Encounters Date Type Department Care Team (Late st Contact Info) Description 10/21/2024 9:30 AM CDT Hospital Encounter [facility] [address] [place] [address] Charbel Moya MD [address] [place] [address] 10/21/2024 9:30 AM CDT - 10/21/2024 10:00 AM CDT Surgery [address] [address] Charbel Moya MD [address] [facility] [facility] [address] [place] [address] COLONOSCOPY Scheduled Procedures Name Priority Associated Diagnoses Date/Ti me COLONOSCOPY Hx of colonic polyps 10/21/2024 9:30 AM CDT Medical Devices Implanted Type Area Rover Tender Device Identifier Shelf Expiration Date Model / Serial / Lot [employer] [id number] Attune 5mm Cruciate Retaining Rotate Platform Knee 5 Insert - [id number] Implanted:Qty: 1 on 04/21/2018 by Jose Joe MD at [facility] [employer] 12/09/2022 [id number] / / [id number] [employer] [id number] Attune Cementless Rotate Platform Knee 5 Baseplate Tibial - [id number] Implanted:Qty: 1 on 04/21/2018 by Jose Joe MD at [facility] [employer] 06/09/2027 [id number] / / [id number] [employer] [id number] Attune Cruciate Retain Cementless Knee Right 5 Narrow Component - [id number] Implanted:Qty: 1 on 04/21/2018 by Jose Joe MD at [facility] [employer] 10/09/2025 [id number] / / [id number] Procedures Procedure Name Priority Date/Time Associated Diagnosis [...] current pathological fracture COLONOSCOPY 12/19/2020 9:58 AM RELOCATION ASSOCIATE from Last 3 Months or Most Recently [...] Isac Mitchell M.D. CH: ANDRES Report ID: [id number] Reading Location: [id number] Procedure Note Isac Mitchell Jr., MD - [...] Isac Mitchell M.D. CH: ANDRES Report ID: [id number] Reading Location: [id number] us Diana Wolff MD IMG US PROCEDURES [...] Isac Mitchell M.D. CH: ANDRES Report ID: [id number] Reading Location: [id number] Procedure Note Isac Mitchell Jr., MD - [...] by Isac Mitchell M.D. CH: Report ID: [id number] Reading Location: [place] [address] Charbel Moya MD IM CT PROCEDURES Final Re sult * Hepatitis panel, acute Blood (08/27/2023 11:16 AM CDT) Hep A IgM Nonreactive Nonreactive Comment: Interpretive Data: If Hep A IgM Ab is reported as Equivocal, a new sample should be drawn in two weeks for testing. Current interpretive data was last revised on 19. Testing performed by: [facility], [address] [place] [address], [place]., [address] Hep B core IgM Nonreactive Nonreactive Jeffrey HAYDEN (DANA) Comment: Interpretive Data If HepB Core IgM Ab is reported as Equivocal, a new sample should be drawn in two weeks for testing. Current interpretive data was last revised on 19. Testing performed by: [facility], [address] [place] [address], [place]., [address] Hep C Ab Nonreactive Nonreactive TRAE HAYDEN [...] last revised on 2019. Testing performed by: [facility], [address] [place] [address]., [address] HepBsAg Nonreactive Nonreactive TRAE HAYDEN (DANA) Comment:Testing performed by : [facility], [address] [place] [address]., [address] Blood 08/27/2023 11:1 6 AM CDT 08/27/2023 5:12 PM CDT Charbel Moya MD LAB MICROBIOLOGY - GENERAL ORDERABLES Final Result TRAE HAYDEN (DANA) 1 [facility] Department [place] [address] * (ABNORMAL) Screening Mammogram Bilateral W Jose [...] F with given history of screening. Postmenopausal Rover Tender/Model: [employer] SL (S/N [id number]) CLINICAL INFORMATION: Current height: 64 inches Maximum [...] Gurpreet Montenegro M.D. MF: CURRY Report ID: [id number] Reading Location: [address] Note Gurpreet Montenegro MD - 05/07/2022 EXAM DESCRIPTION: DEXA AXIAL SKELETON BONE DENSITY 1 OR MORE SITES REASON FOR STUDY: 66 y/o year old F with given history of screening. Postmenopausal Rover Tender/Model: [employer] Discovery SL (S/N [id number]) CLINICAL INFORMATION: Current height: 64 inches Maximum [...] Gurpreet Montenegro M.D. MF: CURRY Report ID: [id number] Reading Location: [place] [address] Diana Wolff MD IM DXA PROCEDURES Final Result * COLONOSCOPY (12/19/2020 9:58 AM RELOCATION ASSOCIATE) Anatomical Region Laterality Modality Other Narrative Procedure Note Charbel Moya MD - 12/19/2020 9:58 AM CST [facility] Patient Name: Vonnie Choat Procedure Date: 12/19/2020 9:58 AM Date of : 1955 Admit Type: Outpatient Age: 65 Gender: Female Attending MD: Charbel Moya M.D. Room: [facility] ENDOSCOPY ROOM 1 Note Status: Finalized Patient [...] under direct vision. The Pediatric Colonoscope [id number]-[id number] was introducedthrough the anus and advanced to [...] 9:58 AM Procedure Code(s): --- Professional --- 58466, Colonoscopy, flexible; with biopsy, single or multiple Diagnosis Code(s): --- Professional --- Z86.010, Personal history of colonic polyps K64.8, Other hemorrhoids K63.5, Polyp of colon K57.30, Diverticulosis of large intestine without perforation orabscess without bleeding CPT copyright 2019 [employer]. All rights reserved. The codes documented in this report are preliminary and upon technical education teacher reviewmay be revised to meet current compliance requirements. Recognized by the [employer] for promoting quality in endoscopy Charbel Moya MD ENDOSCOPY PROCEDURES Final Result from Last 3 Months or Most Recently Relevant to Health Maintenance Insurance MEDICARE T SENIOR [facility] PPO MEDICARE [employer] SENIOR SUPPLEMENT Advance Directives For more information, please contact: [phone] * Full Code (Latest Code Status on [...] Agents on File Name Relationship Healthcare Agent [facility] p Communication Lennox Leon Friend Health Care Agent Shiraz Christie Nephew Health Care Agent [id number] (Mobile) Molly Alvarado Sister First Alternate Health Care Agent Care Teams Neonatal Surgeon Relationship Specialty Start Date End Date Zaire Nguyen MD [address] [place] [address] PCP - General 05/09/16
--- NOTE | 2024-08-29 07:34 | WPDHPUPDATE1 ---
History and Physical Update Update Date/Time: 08/29/24 07:34 History and Physical has been reviewed, including an updated exam of the patient. There are NO changes in the patient's condition. Risks, benefits, and alternatives have been discussed and questions answered. Patient agrees to proceed with procedure.
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
[2024-08-29 10:03] VITALS: BP 135/69; PULSE 83; RESP 16; TEMP 36.4; O2SAT 96
[2024-08-29] MEDS: LACTATED RINGERS 1,000 ML 30 ML IV CONT (10:20)
[2024-08-29] MEDS: ACETAMINOPHEN 500 MG TABLET 1000 MG PO (10:27)
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
--- NOTE | 2024-08-29 11:45 | S_PTH ---
PATIENT: Vonnie Christie I LOC: [facility] U#:[id number] AGE/SX: 69/F ROOM: RE08/29/[address]: Diana Wolff MD : 1955 BED: DIS: 08/29/2024 SPEC #: [id number] RECD: 08/29/24 13:22 STATUS: VICTORINO REQ #: [id number] TERRANCE: 08/29/24 11:[address]: Diana Wolff DEPT: [facility] Surgical RECD BY: Suyapa Mccormack ENTERED: 08/29/24 13:22 SP TYPE: Surgical OTHR DR: Zaire NguyenMD Tissues: A - Endocervical Curettings Procedures: Hematoxylin and Eosin Stain Gross and Microscopic Level 4
--- NOTE | 2024-08-29 11:51 | W.PM.PROC2 ---
Procedure Note - Detailed Date of Procedure 08/29/24 Pre-op Diagnosis thickened endometrium Post-op Diagnosis Same (Endometrial Polyps) Procedure Performed D&C hysteroscopy with resection of polyps Surgeon Diana Wolff MD Anesthesia MAC Findings Multiple polyps within the endometrium. Endometrium appears atrophic. Description of Procedure The patient is taken to the operating room and placed under anesthesia in the dorsal lithotomy position. She was prepped and draped in usual sterile fashion. The bivalve speculum was placed in the vagina and the cervix grasped on the anterior lip with a tenaculum. The external os is stenotic and the sound will not entered. The os Finders were used and the cavity was able to be entered. The uterus is sounded to 7cm. The diagnostic hysteroscope was placed and multiple polyps were noted within the endometrium. The posterior polyp appears more multi cystic with a small area of calcification. The upper polyps are solid in appearance and rounded. The flex Aveta resection device is placed and the polyps were removed in their entirety under direct visualization. The hysteroscope was then removed and the uterus was sharply curetted until a good uterine cry was noted all areas. All instruments are removed. Sponge, needle, and instrument counts are correct per the OR staff. Patient was awakened from anesthesia and taken to recovery in stable condition. Estimated Blood Loss 5 Drains No Packing No Pathology Yes (Endometrial shavings and curettings) Complications No immediate complications Condition Stable Disposition PACU
[2024-08-29 11:53] VITALS: BP 121/65; PULSE 78; RESP 16; O2SAT 96
[2024-08-29 12:20] VITALS: BP 111/67; PULSE 80; RESP 18; O2SAT 98
[2024-08-29 12:50] VITALS: BP 125/70; PULSE 75; RESP 20
[2024-08-29 13:20] VITALS: BP 124/73; PULSE 70; RESP 16
== END 2024-08-29 13:34 | disposition home or self-care (01) ==
PROVIDERS: PCP Internal Medicine; Visit Provider Obstetrics & Gynecology Gynecology
PROC: 0U5B8ZZ Destruction of Endometrium, Via Natural or Artificial Opening Endoscopic (ICD-10-PCS; CPT 58563; principal; 2024-08-29 11:30)
DX: N84.0 Polyp of corpus uteri (principal); E66.01 Morbid (severe) obesity due to excess calories; Z68.41 Body mass index [BMI] 40.0-44.9, adult
CPT/HCPCS: 58558; 88305; A9270; J2003; J2250; J2405; J2704; J3010; J7120